=== PATIENT | male | born 1930 | race Caucasian/White ===

== ENCOUNTER → 2017-01-27 | Outpatient (CLI) | payer MEDICARE, SELFPAY ==
[~2017-01-27] MED LIST: ALBUTEROL2.5 MG/0.5 INH; ASPIRIN325 MG PO; AUGMENTIN250 MG PO; BACTRIM DS1 TAB PO; BETAPACE (GENER80 MG PO; CEFTIN500 MG PO; CENTRUM SILVER1 TAB PO; CPAP INH; DELTASONE10 MG PO; DELTASONE20 MG PO; DELTASONE5 MG PO; ELIQUIS5 MG PO; FLORASTOR250 MG PO; IPRAT-ALBUT 0.5-3 ML INH; K-TAB 10MEQ10 MEQ PO; LASIX40 MG PO; LEVAQUIN 750 M750 MG PO; LEVAQUIN500 MG PO; LIPITOR20 MG PO; LOPRESSOR25 MG PO; N-ACETYL-L-CYS600 MG PO; NITROSTAT0.4 MG SL; OMNICEF 300MG300 MG PO; OXYGEN M-15 INH; PROAIR HFA8.5 GM INH; PROTONIX40 MG PO; SALINE SOLUTIO360 ML NOSE; SYMBICORT 16010.2 GM INH; VANCOMYCIN HCL1 GM IV
== END | disposition disaster alternative care site (69) ==
LOC: LGSMG 12:10
DX: R06.02 Shortness of breath (principal)

== ENCOUNTER → 2017-03-31 | Outpatient (CLI) | payer MEDICARE ==
--- NOTE | ~2017-03-31 | PUL ---
PATIENT'S NAME: TAHIR HECTOR [facility] AGE: 86 Y [address] ROOM: [place] [address] LOCATION: [facility] [[email or web address] ADMIT DATE: 03/31/2017 Pulmonary DISCHARGE DATE: FAMILY PHYSICIAN: Sesar Ayers MD ATTENDING PHYSICIAN: MIGUEL WEBB NAME OF PROCEDURE: Pulmonary Function Test DATE OF PROCEDURE: March 31, 2017 TECH: ATripe, ORACLE BPM CONSULTANT REASON FOR EXAM: COPD RESULTS: 1. FVC was 1.8 liters which is 63% of predicted and low, FEV1 was 0.82 liters which is 42% of predicted and low, and FEV1/FVC was 46% and low. The flow volume curve revealed significant airflow limitation. After bronchodilator administration FVC decreased to 1.73 liters and FEV1 increased to 0.84 liters which is a 2% increase. FEV1/FVC was 48%. 2. Adjusted DLCO was 2% of predicted and low. 3. Total lung capacity was 5 liters which is 104% of predicted, and residual volume was 3.2 liters which is 136% of predicted and at the upper limit of normal. 4. PH was 7.44, PCO2 was 51, PO2 was 57 while on supplemental oxygen at 3 liters/minute. The base excess was 9. PHYSICIAN INTERPRETATION: The patient has severe airflow limitation without a significant bronchodilator response. His diffusion capacity is severely low. There is no evidence of restrictive lung disease. He has metabolic alkalosis with adequate respiratory compensation and no hypoxia at rest on supplemental oxygen at 3 liters/minute. MD LEE DONOVAN/nubia /[id number] dtt: 04/03/17 0853 TRACEY RADU F dtd: 04/02/17 1416
[2017-03-31 11:04] LABS: BICARBONATE 34.6 mmol/L (18.0-23.0); PCO2 51 mmHg (35-45); PO2 57 mmHg (80-90)
== END | disposition disaster alternative care site (69) ==
LOC: GRTH 10:32
PROVIDERS: Internal Medicine Critical Care Medicine
DX: J44.9 Chronic obstructive pulmonary disease, unspecified (principal); E87.3 Alkalosis